=== PATIENT | male | born 1990 | race Caucasian/White ===

== ENCOUNTER 2023-05-14 17:11 | Emergency (ER) | payer MEDICARE, OTHER ==
--- NOTE | 2023-05-14 17:18 | ED ---
URI HPI <Maria G Hoover - Last Filed: 05/20/23 20:54> - General Source: RN notes reviewed, old records reviewed Limitations: no limitations - History of Present Illness MD Complaint: cough, sore throat -: days(s) Severity: mild Severity scale (1-10): 1 Consistency: intermittent Improves With: nothing Worsens With: nothing Associated Symptoms: cough, chest pain Treatments Prior to Arrival: none <Phuc Perez - Last Filed: 05/24/23 23:35> - General Stated Complaint: abnormals ekg - History of Present Illness Initial Comments: Patient sent over for evaluation from urgent care. Went into their facility with complaint of upper respiratory symptoms for the past 2 days. Patient had an elevated heart rate. EKG was performed for which urgent care was concerned and had the patient transferred to the emergency department for further evaluation (EdgarTrina liah Barbra) This is a 32-year-old male to the ER for evaluation of shortness of breath cough congestion upper respiratory symptoms for a few days with some anxiety. Patient is brought to the ER for evaluation with mother at bedside. States patient does appear to be improving here in the ER (Phuc Perez) - Related Data Allergies Allergy/AdvReac Type Severity Reaction Status Date / Time No Known Allergies Allergy Verified 05/14/23 17:56 Review of Systems ROS Other: All systems not noted in ROS Statement are negative. <Maria G Hoover - Last Filed: 05/20/23 20:54> ROS Other: All systems not noted in ROS Statement are negative. <Phuc Perez - Last Filed: 05/24/23 23:35> ROS Statement: Those systems with pertinent positive or pertinent negative responses have been documented in the HPI. General Exam <Maria G Hoover - Last Filed: 05/20/23 20:54> General appearance: alert, in no apparent distress, anxious Head exam: Present: atraumatic, normocephalic, normal inspection Eye exam: Present: normal appearance, PERRL, EOMI. Absent: scleral icterus, conjunctival injection, periorbital swelling ENT exam: Present: normal exam, mucous membranes moist Neck exam: Present: normal inspection. Absent: tenderness, meningismus, lymphadenopathy Respiratory exam: Present: normal lung sounds bilaterally. Absent: respiratory distress, wheezes, rales, rhonchi, stridor Cardiovascular Exam: Present: normal rhythm, normal heart sounds. Absent: systolic murmur, diastolic murmur, rubs, gallop, clicks GI/Abdominal exam: Present: soft, normal bowel sounds. Absent: distended, tenderness, guarding, rebound, rigid Extremities exam: Present: normal inspection, full ROM, normal capillary refill. Absent: tenderness, pedal edema, joint swelling, calf tenderness Back exam: Present: normal inspection Neurological exam: Present: alert, oriented X3, CN II-XII intact Psychiatric exam: Present: normal affect, normal mood Skin exam: Present: warm, dry, intact, normal color. Absent: rash <Phuc Perez - Last Filed: 05/24/23 23:35> - General Exam Comments Initial Comments: Visual Physical Exam Vital signs reviewed General: Well-appearing, nontoxic, no acute distress. Head: Normocephalic, atraumatic Eyes: PERRLA, EOMI ENT: Airway patent Chest: Nonlabored breathing Skin: No visual rash, normal skin tone Neuro: Alert and oriented 3 Musculoskeletal: No gross abnormalities (Maria G Hoover) Course <Phuc Perez - Last Filed: 05/24/23 23:35> Vital Signs 05/14/23 05/14/23 17:46 18:45 Temperature 99.2 F Pulse Rate 99 Respiratory 18 18 Rate Blood Pressure 119/82 O2 Sat by Pulse 97 Oximetry - Reevaluation(s) Reevaluation #1: 05/14/23 19:14 Medical records reviewed (Phuc Perez) Reevaluation #2: 05/14/23 19:14 Patient informed of results and questions answered (Phuc Perez) Reevaluation #3: 05/14/23 19:15 Patient symptoms improved Patient informed of results and questions answered (Phuc Perez) Reevaluation #4: Was pt. sent in by a medical professional or institution (, PA, ICU MANAGER, urgent care, hospital, or penitentiary...) When possible be specific @ -no Did you speak to anyone other than the patient for history (EMS, parent, family, police, friend...)? What history was obtained from this source @ -no Did you review nursing and triage notes (agree or disagree)? Why? @ -agree Are old charts reviewed (outside hosp., previous admission, EMS record, old EKG, old radiological studies, urgent care reports/EKG's, penitentiary records)? Report findings @ -yes Differential Diagnosis (chest pain, altered mental status, abdominal pain women, abdominal pain men, vaginal bleeding, weakness, fever, dyspnea, syncope, headache, dizziness, GI bleed, back pain, seizure, CVA, palpatations, mental health, musculoskeletal)? @ -prior EKG interpreted by me (3pts min.). @ -yes X-rays interpreted by me (1pt min.). @ -yes negative for acute disease CT interpreted by me (1pt min.). @ -no U/S interpreted by me (1pt. min.). @ -no What testing was considered but not performed or refused? (CT, X-rays, U/S, labs)? Why? @ -none What meds were considered but not given or refused? Why? @ -none Did you discuss the management of the patient with other professionals (professionals i.e. , PA, ICU MANAGER, lab, RT, psych nurse, social science professor, director information security, teacher, community resource officer, case worker)? Give summary @ -no Was smoking cessation discussed for >3mins.? @ -no Was critical care preformed (if so, how long)? @ -no Were there social determinants of health that impacted care today? How? (Homelessness, low income, unemployed, alcoholism, drug addiction, transportation, low edu. Level, literacy, decrease access to med. care, detention, rehab)? @ -none Was there de-escalation of care discussed even if they declined (Discuss DNR or withdrawal of care, Hospice)? DNR status @ -no What co-morbidities impacted this encounter? (DM, HTN, Smoking, COPD, CAD, Cancer, CVA, ARF, Chemo, Hep., AIDS, mental health diagnosis, sleep apnea, morbid obesity)? @ -none Was patient admitted / discharged? Hospital course, mention meds given and route, prescriptions, significant lab abnormalities, going to OR and other pertinent info. @ - 32 male to the ER for evaluation of pain and back pain. Patient is informed of findings here in the ER feels improved and can be discharged home Discharge Undiagnosed new problem with uncertain prognosis? @ -no Drug Therapy requiring intensive monitoring for toxicity (Heparin, Nitro, Insulin, Cardizem)? @ -no Were any procedures done? @ -no Diagnosis/symptom? @ -Chest pain Acute, or Chronic, or Acute on Chronic? @ -Acute Uncomplicated (without systemic symptoms) or Complicated (systemic symptoms)? @ -Complicated Side effects of treatment? @ -no Exacerbation, Progression, or Severe Exacerbation? @ -exacerbation Poses a threat to life or bodily function? How? (Chest pain, USA, ND, pneumonia, PE, COPD, DKA, ARF, appy, cholecystitis, CVA, Diverticulitis, Homicidal, Suicid al, threat to staff... and all critical care pts) @ -yes with chest pain (Phuc Perez) Reevaluation #5: Differential Dyspnea: Coronary syndrome, arrhythmia, tamponade, asthma, COPD, pulmonary embolism, pneumonia, pneumothorax, pulmonary effusion, anaphylaxis, diabetic ketoacidosis, flailed chest, pulmonary contusion, diaphragmatic rupture, anemia, n euromuscular, this is not meant to be an all-inclusive list. (Phuc Perez) Medical Decision Making - Lab Data Result diagrams: 05/14/23 18:27 05/14/23 18:27 <Maria G Hoover - Last Filed: 05/20/23 20:54> - Lab Data Result diagrams: 05/14/23 18:27 05/14/23 18:27 - EKG Data -: EKG Interpreted by Me (EKG is sinus 99 AR 133 QRS 90 QTc 400) - Radiology Data Radiology results: report reviewed (Chest x-ray is negative for acute disease), image reviewed <Phuc Perez - Last Filed: 05/24/23 23:35> - Medical Decision Making I performed the quick note portion of this visit, electronically signed Maria G Hoover (Maria G Hoover) 32 male to the ER for evaluation of pain and back pain. Patient is informed of findings here in the ER feels improved and can be discharged home (Phuc Perez) - Lab Data Lab Results 05/14/23 05/14/23 05/14/23 Range/Units 18:27 18:27 18:27 WBC 11.5 H (3.8-10.6) k/uL RBC 5.35 (4.30-5.90) m/uL Hgb 15.5 (13.0-17.5) gm/dL Hct 50.8 (39.0-53.0) % MCV 95.0 (80.0-100.0) fL MCH 29.0 (25.0-35.0) pg MCHC 30.6 L (31.0-37.0) g/dL RDW 14.4 (11.5-15.5) % Plt Count 225 (150-450) k/uL MPV 8.9 Neutrophils % (Manual) 82 % Band Neuts % (Manual) 2 % Lymphocytes % (Manual) 7 % Monocytes % (Manual) 9 % Neutrophils # (Manual) 9.60 H (1.3-7.7) k/uL Lymphocytes # (Manual) 0.81 L (1.0-4.8) k/uL Monocytes # (Manual) 1.04 H (0-1.0) k/uL Nucleated RBCs 0 (0-0) /100 WBC Manual Slide Review Performed Hypochromasia Marked Poikilocytosis Moderate Stomatocytes Present PT 15.8 H (10.0-12.5) sec INR 1.5 H (<1.2) APTT 20.8 L (22.0-30.0) sec Sodium 137 (137-145) mmol/L Potassium 5.0 (3.5-5.1) mmol/L Chloride 98 (98-107) mmol/L Carbon Dioxide 38 H (22-30) mmol/L Anion Gap 1 mmol/L BUN 22 H (9-20) mg/dL Creatinine 0.75 (0.66-1.25) mg/dL Est GFR (CKD-EPI)AfAm >90 (>60 ml/min/1.73 sqM) Est GFR (CKD-EPI)NonAf >90 (>60 ml/min/1.73 sqM) Glucose 100 H (74-99) mg/dL Plasma Lactic Acid Silvestre (0.7-2.0) mmol/L Calcium 7.7 L (8.4-10.2) mg/dL Total Bilirubin 1.4 H (0.2-1.3) mg/dL AST 1092 H (17-59) U/L ALT 1073 H (4-49) U/L Alkaline Phosphatase 67 (38-126) U/L Troponin I (0.000-0.034) ng/mL Total Protein 6.1 L (6.3-8.2) g/dL Albumin 3.5 (3.5-5.0) g/dL 05/14/23 05/14/23 Range/Units 18:27 18:27 WBC (3.8-10.6) k/uL RBC (4.30-5.90) m/uL Hgb (13.0-17.5) gm/dL Hct (39.0-53.0) % MCV (80.0-100.0) fL MCH (25.0-35.0) pg MCHC (31.0-37.0) g/dL RDW (11.5-15.5) % Plt Count (150-450) k/uL MPV Neutrophils % (Manual) % Band Neuts % (Manual) % Lymphocytes % (Manual) % Monocytes % (Manual) % Neutrophils # (Manual) (1.3-7.7) k/uL Lymphocytes # (Manual) (1.0-4.8) k/uL Monocytes # (Manual) (0-1.0) k/uL Nucleated RBCs (0-0) /100 WBC Manual Slide Review Hypochromasia Poikilocytosis Stomatocytes PT (10.0-12.5) sec INR (<1.2) APTT (22.0-30.0) sec Sodium (137-145) mmol/L Potassium (3.5-5.1) mmol/L Chloride (98-107) mmol/L Carbon Dioxide (22-30) mmol/L Anion Gap mmol/L BUN (9-20) mg/dL Creatinine (0.66-1.25) mg/dL Est GFR (CKD-EPI)AfAm (>60 ml/min/1.73 sqM) Est GFR (CKD-EPI)NonAf (>60 ml/min/1.73 sqM) Glucose (74-99) mg/dL Plasma Lactic Acid Silvestre 2.0 (0.7-2.0) mmol/L Calcium (8.4-10.2) mg/dL Total Bilirubin (0.2-1.3) mg/dL AST (17-59) U/L ALT (4-49) U/L Alkaline Phosphatase (38-126) U/L Troponin I 0.054 H* (0.000-0.034) ng/mL Total Protein (6.3-8.2) g/dL Albumin (3.5-5.0) g/dL Disposition <Maria G Hoover - Last Filed: 05/20/23 20:54> Is patient prescribed a controlled substance at d/c from ED?: No Time of Disposition: 19:10 <Phuc Perez - Last Filed: 05/24/23 23:35> Clinical Impression: Upper respiratory infection Disposition: HOME SELF-CARE Condition: Good Instructions (If sedation given, give patient instructions): Upper Respiratory Infection (ED) Referrals: None,Stated [REFERRING] - 1-2 days
[2023-05-14 17:58] VITALS: BP 119/82; PULSE 99; RESP 18; TEMP 99.2
--- NOTE | 2023-05-14 19:09 | XR ---
EXAMINATION TYPE: XR chest 2V DATE OF EXAM: 05/14/2023 7:03 PM CLINICAL INDICATION:Male, 32 years old with history of difficulty breathing; [facility] COMPARISON: None TECHNIQUE: XR chest 2V Frontal and lateral views of the chest. FINDINGS: Lungs/Pleura: There is no evidence of pleural effusion, focal consolidation, or pneumothorax. Pulmonary vascularity: Unremarkable. Heart/mediastinum: Cardiomediastinal silhouette is unremarkable. Musculoskeletal: No acute osseous pathology. IMPRESSION: Low lung volumes with a generalized hazy appearance which could represent atelectasis.
[2023-05-14 19:34] LABS: African American GFR (CKD) >90 (>60 ml/min/1.73 sqM); Albumin 3.5 g/dL (3.5-5.0); Alkaline Phosphatase 67 U/L (38-126); Anion Gap 1 mmol/L; Blood Urea Nitrogen 22 mg/dL (9-20); Calcium 7.7 mg/dL (8.4-10.2); Carbon Dioxide 38 mmol/L (22-30); Chloride 98 mmol/L (98-107); Glucose 100 mg/dL (74-99); Non-African American GFR(CKD) >90 (>60 ml/min/1.73 sqM); Sodium 137 mmol/L (137-145); Total Bilirubin 1.4 mg/dL (0.2-1.3); Total Protein 6.1 g/dL (6.3-8.2)
[2023-05-14 19:38] LABS: HCT 50.8 % (39.0-53.0); HGB 15.5 gm/dL (13.0-17.5); Hypochromasia Marked; MCHC 30.6 g/dL (31.0-37.0); Mean Platelet Volume 8.9; Platelet Count 225 k/uL (150-450); Poikilocytosis Moderate; RBC 5.35 m/uL (4.30-5.90); RDW 14.4 % (11.5-15.5); WBC 11.5 k/uL (3.8-10.6)
[2023-05-14 19:44] LABS: AST 1092 U/L (17-59)
[2023-05-14 19:45] LABS: ALT 1073 U/L (4-49)
[2023-05-14 19:58] LABS: Band Neutrophils % 2 %; Lymphocytes # (M) 0.81 k/uL (1.0-4.8); Monocytes # (M) 1.04 k/uL (0-1.0); Neutrophils % (M) 82 %; Nucleated Red Blood Cells 0 /100 WBC (0-0); Total Cells Counted 100
[2023-05-14 19:59] LABS: Stomatocytes Present
[2023-05-14 20:05] LABS: INR 1.5 (<1.2); Prothrombin Time 15.8 sec (10.0-12.5)
[2023-05-14 20:17] LABS: Partial Thromboplastin Time 20.8 sec (22.0-30.0)
== END 2023-05-14 19:35 | disposition home or self-care (01) ==
LOC: EC 17:11
DX: J06.9 Acute upper respiratory infection, unspecified (principal)
CPT/HCPCS: 36415; 71046; 80053; 83605; 84484; 85025; 85610; 85730; 93005; 99285